=== PATIENT | female | born 1970 | race Caucasian/White ===

== ENCOUNTER 2021-06-26 22:05 | Emergency (ER) | payer BC ==
[~2021-06-26] VITALS: Ht 165.1 cm; Wt 81.7 kg
[2021-06-26 23:30] LABS: BASOPHILS % (AUTO) 0.4 % (0-1); EOSINOPHILS # (AUTO) 0.1 X10'3 (0-0.9); EOSINOPHILS % (AUTO) 0.8 % (0-6); HEMATOCRIT 37.8 % (35.0-45.0); HEMOGLOBIN 12.5 g/dl (12.0-16.0); LYMPHOCYTES # (AUTO) 1.6 X10'3 (1.1-4.8); LYMPHOCYTES % (AUTO) 22.8 % (21-51); MEAN CORPUSCULAR HEMOGLOBIN 29.4 PG (27.0-31.0); MEAN CORPUSCULAR HGB CONC 33.1 g/dL (33.0-36.5); MEAN CORPUSCULAR VOLUME 88.8 FL (78-98); MEAN PLATELET VOLUME 8.9 FL (7.4-10.4); MONOCYTES # (AUTO) 0.6 X10'3 (0-0.9); MONOCYTES % (AUTO) 7.8 % (2-12); NEUTROPHILS # (AUTO) 4.9 X10'3 (1.8-7.7); NEUTROPHILS % (AUTO) 68.2 % (42-75); PLATELET COUNT 222 X10'3 (140-440); RED BLOOD COUNT 4.26 X10'6 (4.20-5.60); RED CELL DISTRIBUTION WIDTH 13.2 % (11.5-14.5); WHITE BLOOD COUNT 7.2 X10'3 (4.5-11.0)
[2021-06-26 23:50] LABS: ALANINE AMINOTRANSFERASE 29 U/L (12-78); ALBUMIN 3.9 G/DL (3.4-5.0); ALBUMIN/GLOBULIN RATIO 1.6 (1.1-1.5); ALKALINE PHOSPHATASE 71 IU/L (46-116); ANION GAP 8 (8-16); ASPARTATE AMINO TRANSFERASE 26 U/L (10-37); BILIRUBIN,TOTAL 0.5 MG/DL (0.1-1.0); BLOOD UREA NITROGEN 21 MG/DL (7-18); BUN/CREATININE RATIO 19.8 (6.6-38.0); CALCIUM 9.8 MG/DL (8.5-10.1); CHLORIDE 109 MMOL/L (99-107); CREATININE 1.06 MG/DL (0.40-0.90); GLUCOSE 190 MG/DL (70-104); LIPASE 240 U/L (73-393); POTASSIUM 4.1 MMOL/L (3.5-5.1); SODIUM 143 MMOL/L (135-145); TOTAL CARBON DIOXIDE 26.3 MMOL/L (24-32); TOTAL PROTEIN 6.3 G/DL (6.4-8.2); eGFR 54 ML/MIN
[2021-06-27 00:21] VITALS: BP 151/92
[2021-06-27 00:30] LABS: URINE HCG NEGATIVE (NEG)
[2021-06-27] MEDS ORDERED: ketorolac trometh. 30mg/ml inj. IV ONE (00:40)
[2021-06-27] MEDS ORDERED: normal saline 1000ML IV soln IVB ONE (00:40)
[2021-06-27] MEDS ORDERED: ondansetron/PF 4mg/2ml inj IV ONE (00:40)
[2021-06-27 00:51] LABS: CLARITY,URINE CLEAR (Clear); COLOR,URINE YELLOW (Yellow); GLUCOSE, URINE NEGATIVE (Neg); KETONES,URINE NEGATIVE (Neg); LEUKOCYTE ESTERASE ,URINE NEGATIVE (Neg); NITRITES, URINE NEGATIVE (Neg); OCCULT BLOOD,URINE MODERATE (Neg); PROTEIN,URINE NEGATIVE (Neg); UROBILINOGEN,URINE 0.2 E.U/dL (0.2-1.0)
[2021-06-27 00:58] LABS: UA COLLECTION TYPE CLN CATCH MIDSTREAM
[2021-06-27 01:02] LABS: BACTERIA,URINE FEW /HPF (Neg); MUCUS STRANDS FEW /LPF (Neg); RBC,URINE 20-50 /HPF (0-2); SQUAMOUS EPITHELIAL CELL,UR FEW /LPF (FEW)
[2021-06-27] MEDS ORDERED: HYDR-3965 PO (01:34)
[2021-06-27] MEDS ORDERED: TADA20TA PO (01:34)
[2021-06-27] MEDS ORDERED: ONDA4TAB12 PO (01:34)
[2021-06-27] MEDS ORDERED: KETO10TA2 PO (01:34)
[2021-06-27] MEDS ORDERED: HYDROcodone/acetaminophen 10/325mg tab PO ONE ×2 (01:40→02:05)
== END 2021-06-27 02:23 | disposition home or self-care (01) ==
LOC: ER 22:05
DX: R10.32 Left lower quadrant pain (principal); N20.1 Calculus of ureter; N13.30 Unspecified hydronephrosis; R11.2 Nausea with vomiting, unspecified; Z90.710 Acquired absence of both cervix and uterus; Z98.890 Other specified postprocedural states; Z88.5 Allergy status to narcotic agent; Z79.899 Other long term (current) drug therapy
CPT/HCPCS: 36415; 74176; 80053; 81001; 81025; 83690; 85025; 87088; 96374; 96375; 99284; J1885; J2405; J7030